=== PATIENT | female | born 1945 | race Two or more races ===

== ENCOUNTER 2024-11-15 10:49 | Emergency (ER) | payer OTHER ==
[~2024-11-15] VITALS: Ht 167.6 cm; Wt 59.0 kg
[2024-11-15] MEDS ORDERED: NORVASC5 MG PO (11:29)
[2024-11-15] MEDS ORDERED: PROGRAF0.5 MG PO (11:30)
[2024-11-15] MEDS ORDERED: TRULICITY0.75 MG/0. SQ (11:31)
[2024-11-15] MEDS ORDERED: SYNTHROID50 MCG PO (11:31)
[2024-11-15] MEDS ORDERED: ADULT LOW DOSE81 M1 PO (11:32)
[2024-11-15] MEDS ORDERED: HYDRALAZINE HCL25 MG PO (11:32)
[2024-11-15] MEDS ORDERED: LASIX40 MG PO (11:33)
[2024-11-15] MEDS ORDERED: ORPHENADRINE CITRATE 30 MG/ML AMPUL IM STA (14:58)
[2024-11-15] MEDS ORDERED: KETOROLAC TROMETHAMINE 15 MG VIAL IM STA (14:58)
[2024-11-15] MEDS ORDERED: ORPHENADRINE CITRATE 30 MG/ML AMPUL ONE (15:07)
[2024-11-15] MEDS ORDERED: KETOROLAC TROMETHAMINE 30 MG VIAL ONE (15:07)
[2024-11-15] MEDS ORDERED: BACLOFEN10 MG PO (15:08)
[2024-11-15] MEDS ORDERED: DICLOFENAC SODI75 MG PO (15:08)
== END 2024-11-15 15:24 | disposition home or self-care (01) ==
LOC: ER 10:50
DX: M62.838 Other muscle spasm (principal); I10 Essential (primary) hypertension; E11.9 Type 2 diabetes mellitus without complications
CPT/HCPCS: 96372; 99282; J1885; J2360

== ENCOUNTER 2025-02-07 00:08 | Emergency (ER) | payer OTHER ==
[~2025-02-07] VITALS: Ht 152.4 cm; Wt 56.2 kg
[~2025-02-07 00:08] MED LIST: ADULT LOW DOSE81 M1 PO; BACLOFEN10 MG PO; DICLOFENAC SODI75 MG PO; HYDRALAZINE HCL25 MG PO; LASIX40 MG PO; NORVASC5 MG PO; PROGRAF0.5 MG PO; SYNTHROID50 MCG PO; TRULICITY0.75 MG/0. SQ
[2025-02-07] MEDS ORDERED: NEURONTIN300 MG PO (00:33)
[2025-02-07] MEDS ORDERED: ORPHENADRINE CITRATE 30 MG/ML AMPUL IM STA (02:42)
[2025-02-07] MEDS ORDERED: DEXAMETHASONE SODIUM PHOSPHATE 4 MG/ML VIAL IM STA (02:43)
[2025-02-07] MEDS ORDERED: ACETAMINOPHEN WITH CODEINE 1 UDTAB TABLET PO STA (02:43)
== END 2025-02-07 03:42 | disposition home or self-care (01) ==
LOC: ER 00:08
DX: M62.830 Muscle spasm of back (principal); M62.838 Other muscle spasm